=== PATIENT | male | born 1965 | race American Indian/Alaskan Native ===

== ENCOUNTER 2018-06-23 13:35 | Inpatient (IN) | payer OTHER ==
[2018-06-23 15:00] VITALS: BMI 34.9
[2018-06-23 15:17] LABS: BASO # 0.1 K/uL (0.0-0.2); BASO % 0.9 % (0.0-2.0); EOS # 0.1 K/uL (0.0-0.7); EOS % 0.7 % (0.0-4.0); LYMPH # 2.2 K/uL (1.0-4.3); LYMPH % 31.1 % (20.0-40.0); MEAN CELL VOLUME 90.8 fL (80.0-94.0); MEAN CORPUSCULAR HEMOGLOBIN 30.7 pg (27.0-31.0); MEAN CORPUSCULAR HGB CONC 33.9 g/dL (33.0-37.0); MEAN PLATELET VOLUME 9.2 fL (7.2-11.7); MONO # 0.6 K/uL (0.0-0.8); MONO % 7.9 % (0.0-10.0); NEUT # 4.2 K/uL (1.8-7.0); NEUT % 59.4 % (50.0-75.0); NRBC % 0.1 % (0.0-2.0); RBC 5.22 Mil/uL (4.40-5.90); RED CELL DISTRIBUTION WIDTH 14.2 % (11.5-14.5)
[2018-06-23 15:18] LABS: SQUAMOUS EPITHIAL 2 /hpf (0-5); URINE BACTERIA MOD (<OCC); URINE BILIRUBIN NEGATIVE (NEGATIVE); URINE BLOOD 1+ (NEGATIVE); URINE CLARITY Hazy (Clear); URINE COLOR Yellow (YELLOW); URINE GLUCOSE (UA) NORMAL (Normal); URINE LEUKOCYTE ESTERASE 3+ Leu/uL (Negative); URINE PROTEIN NEGATIVE (NEGATIVE)
[2018-06-23 15:26] LABS: ALB/GLOB RATIO 1.1 (1.0-2.1); ALBUMIN 4.5 g/dL (3.5-5.0); ALT/SGPT 78 U/L (21-72); AST/SGOT 105 U/L (17-59); BLOOD UREA NITROGEN 9 mg/dL (9-20); CALCIUM 9.2 mg/dl (8.6-10.4); GFR NON-AFRICAN AMERICAN > 60
[2018-06-23 15:55] LABS: BARBITURATES, UR NEGATIVE (NEGATIVE); BENZODIAZEPINES, UR NEGATIVE (NEGATIVE); OPIATES, UR NEGATIVE (NEGATIVE); PHENCYCLIDINE, UR NEGATIVE (NEGATIVE)
--- NOTE | 2018-06-23 16:09 | C.PDOC ---
History Of Present Illness 52-year-old male, presents to the emergency department requesting detox from alcohol. Patient denies any vomiting, SI/HI. Time Seen by Provider: 06/23/18 14:14 Chief Complaint (Nursing): Substance Abuse History Per: Patient History/Exam Limitations: no limitations Current Symptoms Are (Timing): Still Present Past Medical History Reviewed: Historical Data, Nursing Documentation, Vital Signs Vital Signs: Last Vital Signs Temp 97.7 F 06/23/18 14:15 Pulse 73 06/23/18 14:15 Resp 18 06/23/18 14:15 BP 127/74 06/23/18 14:15 Pulse Ox 96 06/23/18 14:15 - Medical History PMH: Asthma, HTN Family History: States: No Known Family Hx - Social History Hx Alcohol Use: Yes Hx Substance Use: Yes (on methadone) - Immunization History Hx Tetanus Toxoid Vaccination: No Hx Influenza Vaccination: No Hx Pneumococcal Vaccination: No Review Of Systems Psych: Negative for: Suicidal ideation Physical Exam - Physical Exam Appears: Non-toxic, No Acute Distress Skin: Warm, Dry, No Rash Head: Atraumatic, Normacephalic Eye(s): bilateral: Normal Inspection Nose: Normal Oral Mucosa: Moist Lips: Normal Appearing Neck: Normal ROM Cardiovascular: Rhythm Regular, No Murmur Respiratory: Normal Breath Sounds, No Accessory Muscle Use Gastrointestinal/Abdominal: Soft, No Tenderness Back: Normal Inspection Extremity: Normal ROM, No Deformity Neurological/Psych: Oriented x3, Normal Speech ED Course And Treatment - Laboratory Results Result Diagrams: 06/23/18 15:06 06/23/18 15:06 O2 Sat by Pulse Oximetry: 96 Pulse Ox Interpretation: Normal (RA) Disposition - Disposition - Scribe Statement The provider has reviewed the documentation as recorded by the Scribe (Casey Palomino) All medical record entries made by the Scribe were at my direction and personally dictated by me. I have reviewed the chart and agree that the record accurately reflects my personal performance of the history, physical exam, medical decision making, and the department course for this patient. I have also personally directed, reviewed, and agree with the discharge instructions and disposition.
--- NOTE | 2018-06-23 19:27 | PCM.BM ---
Treatment Plan Problems - Problems identified on initial assessmt potiential for automonic instability related to alcohol withdrawal Date Initiated: 06/23/18 Time Initiated: 19:26 Assessment reference: NA Status: Active Treatment assets and liabiliti Patient Assests: ADL independent, cognitively intact Patient Liabilities: substance abuse, medical problems - Milieu Protocol Maintain good personal hygiene: daily Encourage regular showers, daily Remind patient to perform daily oral care, daily Assist patient to perform ADL's Maintain personal safety: every shift Educate patient to report safety concerns to staff, every shift Monitor environment for contraband/sharps Medication safety: Monitor for expected outcome, potential side effects: every shift, Assess barriers to learning: every shift, Assess readiness for medication education: every shift
[2018-06-24 08:01] VITALS: BP 134/73; PULSE 71; RESP 18; TEMP 98.2; O2SAT 95
--- NOTE | 2018-06-24 09:57 | PCM.PSYCH ---
Initial Psychiatric Evaluation - Initial Psychiatric Evaluation Type of Admission: Voluntary Legal Status: Capacity Chief Complaint (in patient's own words): i came in to get help History of Present Illness and Precipitating Events: He is a 52 yr old male with past history of bipolar disorder, opiate use disorder, alcohol use disorder who was previously living at [facility] recieving methdone maintenance treatment, came to the [facility] detox to get help. Patient reports of drinking almost 3-4 cans of beers 48oz, plus several "nips" every other day. Last abuse was yesterday. His aunt has Power of Roaster Supervisor over him. He denies previous admission to psychiatric hospital and has been to rehab four times in the past. He reports irritability but denies any feelings of hopelessness and helplessness. He denies any auditory or visual hallucinations, or any psychotic symptoms. Patient reports withdrawal symptoms including nausea, anxiety, and headaches. Social: Patient lives with his aunt who is the primary caregiver and Power of state's attorney Medical: HTN, NIDDM, Asthma Allergy: denies Surg: denies Hosp: denies Fam hx: denies Meds: Olanzapine 10mg at night Current Medications: Active Medications Generic Name Dose Route Start Last Admin Trade Name Freq PRN Reason Stop Dose Admin Chlordiazepoxide 25 mg 06/24/18 06:00 06/24/18 05:31 Librium PO 06/29/18 05:59 25 mg Q6 CHEMA Administration Taper Chlordiazepoxide 25 mg 06/24/18 00:08 Librium PO Q4H PRN Alcohol Withdrawal Clonidine HCl 0.1 mg 06/24/18 00:08 Catapres PO Q4H PRN Symptoms of alcohol withdrawl Folic Acid 1 mg 06/24/18 10:00 Folic Acid PO DAILY CHEMA Metformin HCl 500 mg 06/24/18 10:00 Glucophage PO BID CHEMA Methadone HCl 70 mg 06/24/18 10:00 Methadone PO DAILY CHEMA Multivitamins 1 tab 06/24/18 10:00 Hexavitamin PO DAILY CHEMA Olanzapine 10 mg 06/23/18 22:00 06/23/18 21:01 Zyprexa PO 10 mg HS CHEMA Administration Thiamine HCl 100 mg 06/24/18 10:00 Vitamin B1 Tab PO DAILY CHEMA Trazodone HCl 50 mg 06/23/18 19:50 06/23/18 21:01 Desyrel PO 50 mg HS PRN Administration Insomnia Past Psychiatric History - Past Psychiatric History Previous Treatment History: Inpatient Pertinent Medical Hx (Current Medical&Sleep Prob, Allergies): Allergies Allergy/AdvReac Type Severity Reaction Status Date / Time No Known Allergies Allergy Verified 06/23/18 14:47 No Known Home Med 06/23/18 Review of Systems - Review of Systems All systems: reviewed and no additional remarkable complaints except - Psychiatric Psychiatric: Anxiety, Irritability. absent: Suicidal Ideation Mental Status Examination - Personal Presentation Personal Presentation: Looks stated age - Affect Affect: Constricted - Motor Activity Motor Activity: Calm - Reliability in Providing Information Reliability in Providing Information: Fair - Speech Speech: Organized - Mood Mood: Anxious - Formal Thought Process Formal Thought Process: No Impairment - Obsessions/Compulsions Obsessions: No Compulsions: No - Cognitive Functions Orientation: Person, Place, Situation, Time Sensorium: Alert Attention/Concentration: Attentive Abstract Thinking: [place] Estimate of Intelligence: Below average Judgement: Imparied, as evidence by: Poor judgement, Intact, as evidence by: Insight regarding need for hospitalization - Risk Risk: Withdrawal, Diminished functioning - Limitations Limitations: Living alone DSM 5 DX - DSM 5 DSM 5 Diagnosis: Alcohol use disorder severe Alcohol withdrawal Opiate use disorder severe in remission - Recommended/Plan of Treatment Treatment Recommendations and Plan of Treatment: Alcohol use disorder severe Alcohol withdrawal Opiate use disorder severe in remission CBT Psychoeducation Supportive therapy, individual therapy Ativan when necessary Start Ativan taper Start folic acid/thiamine/multivitamin Start Trazodone 50 mg PO Q HS As needed medications Use VT for abstinence - Smoking Cessation Smoking Cessation Initiated: No
[2018-06-24] MEDS ORDERED: Multiple Vitamins Tab PO SCH (10:00)
--- NOTE | 2018-06-24 16:33 | PCM.PYCHDC ---
Mental Status Examination - Mental Status Examination Orientation: Person, Place, Situation, Time Memory: Intact Mood: Neutral Affect: Constricted Speech: Soft Attention: WNL Concentration: WNL Association: WNL Fund of Knowledge: WNL Formal Thought Process: No Impairment Description of patient's judgement and insight: Partially impaired Psychotic Thoughts and Behaviors: Denies any AVH Suicidal Ideation: No Current Homicidal Ideation?: No Discharge Summary - Discharge Note Reason for Hospitalization: He is a 52 yr old male with past history of bipolar disorder, opiate use disorder, alcohol use disorder [facility], came to [facility] detox to get help. Patient reports of drinking almost 3-4 cans of beers 48oz, plus several "nips" every other day. Last abuse was yesterday. His aunt has Power of Case Management Specialist over him. He denies previous admission to psychiatric hospital and has been to rehab four times in the past. He reports irritability but denies any feelings of hopelessness and helplessness. He denies any auditory or visual hallucinations, or any psychotic symptoms. Patient reports withdrawal symptoms including nausea, anxiety, and headaches. Social: Patient lives with his aunt who is the primary caregiver and Power of patent attorney Medical: HTN, NIDDM, Asthma Allergy: denies Surg: denies Hosp: denies Fam hx: denies Meds: Olanzapine 10mg at night Laboratory Data: Abnormal Lab Results 06/24/18 08:16 POC Glucose (mg/dL) 111 H Consultations:: List each consultation separately and include: 1. Reason for request. 2. Findings. 3. Follow-up Summary of Hospital Course include:: 1. Description of specific treatment plan utilized for patients during their course of treatmen. 2. Summarize the time- course for resolution of acute symptoms and/or regressed behaviors. 3. Describe issues identified and worked on during hospitalization. 4. Describe medication utilized. 5. Describe medical problems identified and treated. 6. Reassessment of suicide risk Summary of Hospital Course: Patient was found to have a nip bottle full of methadone on him as well as c igarettes. When patient was confronted, patient told that he hid the bottle in his underwear. Patient was discharged early from the unit due to possession of contraband. However, he denied any feelings of hopelessness, helplessness, and worthlessness, denied any problem with the sleep or appetite, denied suicidal ideation or homicidal ideation. Pt denied any auditory or visual hallucinations. - Final Diagnosis (DSM 5) Condition upon Discharge: GOOD DSM 5: Alcohol use disorder severe Alcohol withdrawal Opiate use disorder severe in remission Disposition: HOME/ ROUTINE Follow-up Treatment Plan: Education: Pt was educated and counseled about the risks of drinking and abusing drugs. Pt was educated and counseled to go to the ER or call 911 if pt develop suicidal ideation or homicidal ideation, worsening of symptoms or severe side effects of the meds. - Smoking Cessation Smoking Cessation Medication prescribed: No - Antipsychotic Medications Pt discharged on 2 or more routine antipsychotic medications: No
== END 2018-06-24 10:40 | disposition home or self-care (01) ==
LOC: C.ER 13:35 → C.7D 19:12
PROC: HZ2ZZZZ Detoxification Services for Substance Abuse Treatment (ICD-10-PCS; principal; 2018-06-23)
PROC: HZ52ZZZ Individual Psychotherapy for Substance Abuse Treatment, Cognitive-Behavioral (ICD-10-PCS; 2018-06-23)
PROC: HZ59ZZZ Individual Psychotherapy for Substance Abuse Treatment, Supportive (ICD-10-PCS; 2018-06-23)
DX: F10.239 Alcohol dependence with withdrawal, unspecified (principal); F11.21 Opioid dependence, in remission; F31.9 Bipolar disorder, unspecified; F41.9 Anxiety disorder, unspecified; I10 Essential (primary) hypertension; E11.9 Type 2 diabetes mellitus without complications; J45.909 Unspecified asthma, uncomplicated; Z79.84 Long term (current) use of oral hypoglycemic drugs